=== PATIENT | male | born 1945 | race Caucasian/White ===

== ENCOUNTER 2017-10-12 21:00 | Outpatient (CLI) | payer MEDICARE, BC ==
[~2017-10-12 21:00] MED LIST: ASP81TEC PO; ASPI-999 PO; ATOR40TA PO; ATOR80TA76 PO; CLOP75TA PO; ENAL10TA PO; ENAL20TA PO; FENO135C4 PO; METO50TA7 PO; MULT-298 PO; NIAC1CAP PO; NIAC500T24 PO
== END 2017-10-13 06:00 | disposition home or self-care (01) ==
LOC: SLEEP 21:00
PROVIDERS: ATTEND Nurse Practitioner
DX: G47.10 Hypersomnia, unspecified (principal); R06.83 Snoring; I10 Essential (primary) hypertension
CPT/HCPCS: 95810

== ENCOUNTER → 2018-04-04 | Outpatient (CLI) | payer MEDICARE, BC ==
[~2018-04-04] VITALS: Ht 177.8 cm; Wt 82.1 kg
[~2018-04-04] MED LIST changes: +CATHETER FLUSH 10 ML SYR IV PRN; +REGADENOSON 0.4 MG/5 ML SYR (LEXISCAN) IV ONE
[2018-04-04 09:24] VITALS: BP 161/86
--- NOTE | 2018-04-04 19:26 | STRESS TEST ---
DATE OF SERVICE: 04/04/2018 RESTING AND POST REGADENOSON TECHNETIUM-99M TETROFOSMIN SPECT CT IMAGING Baseline images were carried out after injection of 10.64 mCi of technetium-99m tetrofosmin. This was followed by 0.4 mg regadenoson and 28.6 mCi of mail technician-99 tetrofosmin for stress imaging. The electrocardiogram showed sinus rhythm at baseline. There was nonspecific ST and T-wave abnormality in the inferolateral leads, which did not change with the regadenoson infusion. The patient tolerated the procedure well. Review of images at rest and following stress does not indicate any distinct perfusion defects consistent with significant myocardial ischemia or infarction. Gated images show normal global left ventricular systolic function, normal regional wall motion. Left ventricular ejection fraction is calculated to be 62%. Left ventricular end diastolic volume is 82 mL. TID is absent (1.14). CONCLUSIONS: 1. No evidence of significant myocardial ischemia or infarction on this study. 2. Normal regional wall motion. 3. Normal global left ventricular systolic function with a calculated ejection fraction of 62%. Job ID: [id number] DocumentID: [id number] Dictated Date: 04/04/2018 17:00:07 [employer] Date: 04/04/2018 19:25:25 Dictated By: BRADFORD DE LA CRUZ MD, MA, FACP, FACC,
== END ==
LOC: CARD 07:19
PROVIDERS: ATTEND Nurse Practitioner Family
DX: I25.10 Atherosclerotic heart disease of native coronary artery without angina pectoris (principal); I10 Essential (primary) hypertension; E78.5 Hyperlipidemia, unspecified
CPT/HCPCS: 78452; 93017

== ENCOUNTER 2019-02-27 05:30 | Outpatient (CLI) | payer MEDICARE, BC ==
[~2019-02-27] VITALS: Ht 177.8 cm; Wt 82.1 kg
[~2019-02-27 05:30] MED LIST changes: -CATHETER FLUSH 10 ML SYR IV PRN; -REGADENOSON 0.4 MG/5 ML SYR (LEXISCAN) IV ONE
[2019-02-28] MEDS ORDERED: MULT-610 PO (10:54)
[2019-02-28] MEDS ORDERED: METO-352 PO (10:55)
[2019-02-28] MEDS ORDERED: CLOP75TA28 PO (10:55)
== END 2019-02-28 11:04 | disposition home or self-care (01) ==
LOC: PREOP 05:30
PROVIDERS: ATTEND Specialist
DX: Z01.818 Encounter for other preprocedural examination (principal)

== ENCOUNTER 2019-03-02 05:56 | Day surgery (SDC) | payer MEDICARE, BC ==
[~2019-03-02] VITALS: Ht 177.8 cm; Wt 82.1 kg
[~2019-03-02 05:56] MED LIST changes: +CLOP75TA28 PO; +METO-352 PO; +MULT-610 PO
[2019-03-02 06:00] VITALS: BP 168/92
[2019-03-02] MEDS ORDERED: LIDOCAINE PF 1% 2 ML AMP IR PRN (06:15)
[2019-03-02] MEDS ORDERED: TIMOLOL MALEATE 0.5% 5 ML (TIMOPTIC) BTL OU PRN (06:15)
[2019-03-02] MEDS ORDERED: POVIDONE (BETADINE) OPHTH SOLN 5% 30 ML OP ONE (06:15)
[2019-03-02] MEDS ORDERED: MOXIFLOXACIN OPHTH SOLN 5 MG/ML 0.3 ML SYRINGE OP ONE (06:15)
[2019-03-02] MEDS: TETRACAINE 0.5% OPHTH SOLN 4 ML BTL (SINGLE DOSE ONLY) OU PRN ×4 (06:22→06:47)
[2019-03-02] MEDS: CYCLOPENTOLATE 1% (CYCLOGYL) 2 ML DROPS OP SCH ×3 (06:34→06:47)
[2019-03-02] MEDS: PHENYLEPHRINE 10% OPHTH (NEO-SYN) 5 ML BTL OU SCH ×3 (06:34→06:47)
[2019-03-02] MEDS ORDERED: MIDAZOLAM 2 MG/2 ML (VERSED) VIAL ONE (06:47)
--- NOTE | 2019-03-02 06:55 | Ophthalmologist Pre-Op Note ---
Pre-Operative Progress Note H&P Reviewed The H&P was reviewed, patient examined and no changes noted. Date H&P Reviewed: Mar 02, 2019 Time H&P Reviewed: 06:55 Pre-Op Dx Cataract, Right Eye SHANNON PRATHER MD Mar 02, 2019 06:55
--- NOTE | 2019-03-02 07:16 | Ophthalmology Operative Report ---
Cataract removal/placement IOL PREOPERATIVE DIAGNOSIS: Cataract Right Eye POSTOPERATIVE DIAGNOSIS: Cataract Right Eye PROCEDURE: Cataract removal and placement of posterior chamber implant, right eye SURGEON: Gerardo Prather ANESTHESIA: Topical with sedation COMPLICATIONS: None ESTIMATED BLOOD LOSS: Minimal DESCRIPTION OF PROCEDURE: After proper informed consent was obtained, the patient, a 73 male, was taken to the Operating Room and the right eye was anesthetized with tetracaine. The right eye was then prepped and draped in the usual manner. A wire lid speculum was placed. A paracentesis was made at the left hand position. Preservative free lidocaine was injected into the anterior chamber followed by viscoelastic. A clear corneal incision was made in the temporal position. A capsulorrhexis was preformed and the central nuclear and cortical material were removed. The posterior capsule was polished and Jc [id number] 21.5 IOL was placed into the capsular bag. The residual viscoelastic was aspirated and balanced saline solution was injected into the anterior chamber. Moxifloxacin was injected into the anterior chamber. The wound was checked and found to be water tight. The patient tolerated the procedure well without complications. GERARDO PRATHER MD Mar 02, 2019 07:16
[2019-03-02 07:23] VITALS: BP 163/87
[2019-03-02] MEDS ORDERED: acetaZOLAMIDE ER 500 MG CAP (DIAMOX SEQUELS) PO ONE (07:30)
--- NOTE | 2019-03-02 10:54 | Anesthesia-General Post-Op ---
MAC Patient Condition Mental Status/LOC: Same as Preop Cardiovascular: Satisfactory Nausea/Vomiting: Absent Respiratory: Satisfactory Pain: Controlled Complications: Absent Post Op Complications Complications None Follow Up Care/Instructions Patient Instructions None needed. Anesthesiology Discharge Order Discharge Order Patient is doing well, no complaints, stable vital signs, no apparent adverse anesthesia problems. No complications reported per nursing. SHRUTHI WILSON CRNA Mar 02, 2019 10:54
== END 2019-03-02 07:23 | disposition home or self-care (01) ==
LOC: SDC 05:56
PROVIDERS: ATTEND Specialist
DX: H25.11 Age-related nuclear cataract, right eye (principal); I25.10 Atherosclerotic heart disease of native coronary artery without angina pectoris; Z87.891 Personal history of nicotine dependence; Z82.49 Family history of ischemic heart disease and other diseases of the circulatory system; Z83.3 Family history of diabetes mellitus; Z95.1 Presence of aortocoronary bypass graft; Z79.82 Long term (current) use of aspirin; Z79.02 Long term (current) use of antithrombotics/antiplatelets; Z79.899 Other long term (current) drug therapy

== ENCOUNTER 2019-03-14 05:34 | Outpatient (CLI) | payer MEDICARE, BC ==
[~2019-03-14] VITALS: Ht 177.8 cm; Wt 82.1 kg
== END 2019-03-15 11:10 | disposition home or self-care (01) ==
LOC: PREOP 05:34
PROVIDERS: ATTEND Specialist
DX: Z01.818 Encounter for other preprocedural examination (principal)

== ENCOUNTER 2019-03-16 06:00 | Day surgery (SDC) | payer MEDICARE, BC ==
[~2019-03-16] VITALS: Ht 177.8 cm; Wt 82.1 kg
[2019-03-16 06:10] VITALS: BP 171/92
[2019-03-16] MEDS: TETRACAINE 0.5% OPHTH SOLN 4 ML BTL (SINGLE DOSE ONLY) OU PRN ×4 (06:14→06:36)
[2019-03-16] MEDS ORDERED: MOXIFLOXACIN OPHTH SOLN 5 MG/ML 0.3 ML SYRINGE OP ONE (06:15)
[2019-03-16] MEDS ORDERED: POVIDONE (BETADINE) OPHTH SOLN 5% 30 ML OP ONE (06:15)
[2019-03-16] MEDS ORDERED: TIMOLOL MALEATE 0.5% 5 ML (TIMOPTIC) BTL OU PRN (06:15)
[2019-03-16] MEDS ORDERED: LIDOCAINE PF 1% 2 ML AMP IR PRN (06:15)
[2019-03-16] MEDS: CYCLOPENTOLATE 1% (CYCLOGYL) 2 ML DROPS OP SCH ×3 (06:25→06:36)
[2019-03-16] MEDS: PHENYLEPHRINE 10% OPHTH (NEO-SYN) 5 ML BTL OU SCH ×3 (06:25→06:36)
[2019-03-16] MEDS ORDERED: MIDAZOLAM 2 MG/2 ML (VERSED) VIAL ONE (07:03)
[2019-03-16 07:30] VITALS: BP 165/90
[2019-03-16] MEDS ORDERED: acetaZOLAMIDE ER 500 MG CAP (DIAMOX SEQUELS) PO ONE (07:30)
--- NOTE | 2019-03-16 14:29 | Anesthesia-General Post-Op ---
MAC Patient Condition Mental Status/LOC: Same as Preop Cardiovascular: Satisfactory Nausea/Vomiting: Absent Respiratory: Satisfactory Pain: Controlled Complications: Absent Post Op Complications Complications None Follow Up Care/Instructions Patient Instructions None needed. Anesthesiology Discharge Order Discharge Order Patient is doing well, no complaints, stable vital signs, no apparent adverse anesthesia problems. No complications reported per nursing. HERNESTO VELASQUEZ CRNA Mar 16, 2019 14:29
== END 2019-03-16 07:30 | disposition home or self-care (01) ==
LOC: SDC 06:00
PROVIDERS: ATTEND Specialist
DX: H25.12 Age-related nuclear cataract, left eye (principal); I25.10 Atherosclerotic heart disease of native coronary artery without angina pectoris; Z95.1 Presence of aortocoronary bypass graft; Z98.61 Coronary angioplasty status; Z79.82 Long term (current) use of aspirin; Z79.899 Other long term (current) drug therapy; Z87.891 Personal history of nicotine dependence

== ENCOUNTER 2021-05-20 02:44 | Emergency (ER) | payer MEDICARE, BC ==
[~2021-05-20] VITALS: Ht 177.8 cm; Wt 81.6 kg
[~2021-05-20 02:44] MED LIST changes: -ENAL20TA PO; +ENAL20TA16 PO
[2021-05-20] MEDS ORDERED: HYDROcodone/APAP 5 MG/325 MG (LORTAB) TAB PO ONE (03:00)
--- NOTE | 2021-05-20 03:02 | ED GU-Male ---
General Chief Complaint: Post OP Complications/Pain Stated Complaint: PROSTATE BIOPSY YESTERDAY-PAIN Source: patient Exam Limitations: no limitations History of Present Illness Date Seen by Provider: May 20, 2021 Time Seen by Provider: 02:53 Initial Comments The patient presents to the ER by private conveyance with his and chief complaint that he has had difficulty with urinating since yesterday afternoon and feels the urge to urinate but cannot get anything to pass. He had a needle biopsy of the prostate yesterday by Dr. Schmitz secondary to a PSA of 20. He is not having any difficulty with diarrhea or discharge from the urethra. He has not had nausea. He rates his pain as severe. He did not take anything for the pain. He has been on antibiotics for the past 2 days in anticipation of the procedure and his last day was today. Allergies and Home Medications Allergies Coded Allergies: No Known Drug Allergies (Unverified , 09/29/11) Patient Home Medication List Home Medication List Reviewed: Yes Aspirin (Aspirin) 81 Mg Tab.chew, 81 MG PO DAILY Prescribed by: BRADFORD DE LA CRUZ on 04/21/16 0857 Atorvastatin Calcium (Atorvastatin Calcium) 80 Mg Tablet, 80 MG PO DAILY, (Reported) Entered as Reported by: AGA DAMON on 04/20/16 1146 Clopidogrel Bisulfate (Clopidogrel) 75 Mg Tablet, 75 MG PO DAILY, (Reported) Entered as Reported by: FLOR OBRIEN on 02/28/19 1055 Enalapril Maleate (Enalapril Maleate) 20 Mg Tablet, 20 MG PO DAILY, (Reported) Entered as Reported by: AGA DAMON on 04/20/16 1146 Fenofibric Acid (Choline) (Fenofibric Acid) 135 Mg Capsule.dr, 135 MG PO DAILY, (Reported) Entered as Reported by: AGA DAMON on 04/20/16 1146 Metoprolol Succinate (Toprol Xl) 50 Mg Tab.er.24h, 50 MG PO BID, (Reported) Entered as Reported by: FLOR OBRIEN on 02/28/19 1055 Review of Systems Review of Systems Constitutional: No chills, No diaphoresis EENTM: No ear discharge, No ear pain Respiratory: No cough, No short of breath Cardiovascular: No chest pain, No edema Gastrointestinal: abdominal pain (Suprapubic); No constipation, No nausea Genitourinary: denies discharge, denies dysuria Musculoskeletal: No back pain, No joint pain All Other Systemes Reviewed Negative Unless Noted: Yes Past Kkzfvft-Ccnbkz-Szfhji Hx Patient Social History Tobacco Use?: No Smoking Status: Former Smoker (Quit 20 years ago) Use of E-Cig and/or Vaping dev: No Substance use?: No Alcohol Use?: No Physical Exam Vital Signs Vital Signs - First Documented 05/20/21 02:53 Temp 36.1 Pulse 112 Resp 16 B/P (MAP) 223/132 (162) Pulse Ox 97 O2 Delivery Room Air Capillary Refill : Height, Weight, BMI Height: 5'10.00" Weight: 181lbs. 0.0oz. 82.421493sf; 26.0 BMI Method: General Appearance: WD/WN, moderate distress HEENT: PERRL/EOMI, pharynx normal Neck: full range of motion, supple, normal inspection Cardiovascular: normal peripheral pulses, regular rate, rhythm Respiratory: no respiratory distress, no accessory muscle use Gastrointestinal: non tender, soft Extremities: non-tender, normal inspection, normal capillary refill Neurologic/Psychiatric: alert, normal mood/affect, oriented x 3 Skin: normal color, warm/dry Progress/Results/Core Measures Suspected Sepsis SIRS Temperature: Pulse: Respiratory Rate: Blood Pressure / Mean: Results/Orders Lab Results Laboratory Tests Test 05/20/21 03:00 Range/Units Urine Color ORANGE Urine Clarity CLEAR Urine pH 6.0 5-9 Urine Specific [place] 1.020 1.016-1.022 Urine Protein 1+ H NEGATIVE Urine Glucose (UA) NEGATIVE NEGATIVE Urine Ketones NEGATIVE NEGATIVE Urine Nitrite NEGATIVE NEGATIVE Urine Bilirubin NEGATIVE NEGATIVE Urine Urobilinogen 0.2 < = 1.0 MG/DL Urine Leukocyte Esterase NEGATIVE NEGATIVE Urine RBC (Auto) 3+ H NEGATIVE Urine RBC 5-10 H /HPF Urine WBC NONE /HPF Urine Squamous Epithelial Cells 0-2 /HPF Urine Crystals PRESENT H /LPF Urine Amorphous Sediment LARGE GIBRAN URATES H /LPF Urine Bacteria NEGATIVE /HPF Urine Casts NONE /LPF Urine Mucus LARGE H /LPF Urine Culture Indicated NO My Orders Orders - YASH PURVIS Hydrocodone/Apap 5/325 Tablet (Lortab 5 (05/20/21 03:00) Ua Culture If Indicated (05/20/21 02:56) Bladder Scan (05/20/21 02:56) Lidocaine 2% (Urojet) (Xylocaine Urojet) (05/20/21 03:15) Mora Cath (05/20/21 03:27) Medications Given in ED Current Medications Medications Dose Ordered Sig/Ravindra Route Start Time Stop Time Status Last Admin Dose Admin Acetaminophen/ Hydrocodone Bitart 2 ea ONCE ONCE PO 05/20/21 03:00 05/20/21 03:01 DC 05/20/21 03:12 2 EA Lidocaine HCl 10 ml ONCE ONCE TOP 05/20/21 03:15 05/20/21 03:16 DC 05/20/21 03:13 10 ML Vital Signs/I&O 05/20/21 05/20/21 02:53 03:30 Temp 36.1 Pulse 112 Resp 16 B/P (MAP) 223/132 (162) 162/91 Pulse Ox 97 O2 Delivery Room Air Capillary Refill : Progress Note #1: Time: 03:01 Progress Note Bladder scan, 2 tablets of Jena 5 x 325. Suspect he has urinary retention due to outlet obstruction secondary to prostate inflammation secondary to needle biopsy. He is tachycardic and has a significant elevated blood pressure secondary to pain which I think will be improved if we can relieve the pressure in his bladder. No other symptoms of infection at this time. We will get a u rinalysis. Progress Note #2: Time: 03:52 Progress Note bladder scan greater than 1000 ml. 16 Fr coude tipped passed with urojet easily and clamped at 1200 before we left the room. Immediate relief per pt. Departure Impression Primary Impression: Urinary outflow obstruction Disposition: HOME, SELF-CARE Condition: Stable Departure-Patient Inst. Decision time for Depature: 03:54 Referrals: HINA POWELL MD (PCP/Family) Primary Care Physician Patient Instructions: Urinary Obstruction (DC) Add. Discharge Instructions: Call Dr. Schmitz in the morning and request follow-up appointment. Keep the Mora catheter in place until that time. Clean with soap and water. Return to the ER or to your urologist during the day if you are having difficulty getting urine to come out of the Mora catheter or you are having increased pressure and pain. Keflex 1 capsule twice a day for the next 5 days to prevent infection Scripts Cephalexin (Cephalexin) 500 Mg Tablet 500 MG PO BID for 5 Days, #10 TAB 0 Refills Prov: YASH PURVIS 05/20/21 YASH PURVIS May 20, 2021 03:02
[2021-05-20] MEDS ORDERED: LIDOCAINE UROJET 2% GEL 10 ML PKG TOP ONE (03:15)
[2021-05-20 03:28] LABS: BILIRUBIN,URINE NEGATIVE (NEGATIVE); CLARITY,URINE CLEAR; COLOR,URINE ORANGE; GLUCOSE, URINE (UA) NEGATIVE (NEGATIVE); KETONES,URINE NEGATIVE (NEGATIVE); LEUKOCYTE ESTERASE ,URINE NEGATIVE (NEGATIVE); NITRITE,URINE NEGATIVE (NEGATIVE); PROTEIN,URINE 1+ (NEGATIVE)
[2021-05-20 03:38] LABS: BACTERIA,URINE NEGATIVE /HPF; SQUAMOUS EPITHELIAL CELL,UR 0-2 /HPF
[2021-05-20 03:39] LABS: AMORPHOUS SEDIMENT,UR LARGE AMOR URATES /LPF
[2021-05-20] MEDS ORDERED: CEPH500T PO (03:57)
[2021-05-20 04:31] VITALS: BP 148/77
== END 2021-05-20 04:31 | disposition home or self-care (01) ==
LOC: EDUNIT# 02:44 → ER 02:48
DX: N13.9 Obstructive and reflux uropathy, unspecified (principal); Z87.891 Personal history of nicotine dependence; Z79.82 Long term (current) use of aspirin; Z79.01 Long term (current) use of anticoagulants
CPT/HCPCS: 51702; 81000

== ENCOUNTER 2021-06-22 12:35 | Outpatient (RCR) | payer MEDICARE, BC ==
[~2021-06-22 12:35] MED LIST changes: +CEPH500T PO
== END 2021-07-31 | disposition home or self-care (01) ==
LOC: ONC 12:35
PROVIDERS: ATTEND Radiology Radiation Oncology
DX: C61 Malignant neoplasm of prostate (principal); I25.10 Atherosclerotic heart disease of native coronary artery without angina pectoris; E11.9 Type 2 diabetes mellitus without complications; I10 Essential (primary) hypertension; E78.5 Hyperlipidemia, unspecified
CPT/HCPCS: 99205

== ENCOUNTER → 2021-09-28 | Outpatient (RCR) | payer MEDICARE, BC | END | disposition home or self-care (01) | LOC: ONC 09-01 09:01 | PROVIDERS: ATTEND Radiology Radiation Oncology | DX: Z51.0 Encounter for antineoplastic radiation therapy (principal); C61 Malignant neoplasm of prostate; I10 Essential (primary) hypertension; E78.5 Hyperlipidemia, unspecified; I25.10 Atherosclerotic heart disease of native coronary artery without angina pectoris | CPT/HCPCS: 77300; 77301; 77334; 77336; 77338; 77385 ==

== ENCOUNTER 2021-10-20 14:44 | Outpatient (RCR) | payer MEDICARE, BC | END 2021-10-29 | disposition home or self-care (01) | LOC: ONC 14:44 | PROVIDERS: ATTEND Radiology Radiation Oncology | DX: Z51.0 Encounter for antineoplastic radiation therapy (principal); C61 Malignant neoplasm of prostate; I10 Essential (primary) hypertension; E78.5 Hyperlipidemia, unspecified; I25.10 Atherosclerotic heart disease of native coronary artery without angina pectoris | CPT/HCPCS: 77336; 77385; G0463 ==

== ENCOUNTER 2021-11-26 10:56 | Outpatient (RCR) | payer MEDICARE, BC | END 2021-11-28 | disposition home or self-care (01) | LOC: ONC 10:56 | PROVIDERS: ATTEND Radiology Radiation Oncology | DX: C61 Malignant neoplasm of prostate (principal); I10 Essential (primary) hypertension; E78.5 Hyperlipidemia, unspecified; I25.10 Atherosclerotic heart disease of native coronary artery without angina pectoris | CPT/HCPCS: 99213 ==

== ENCOUNTER → 2022-04-02 | Outpatient (CLI) | payer MEDICARE, BC | LOC: CARD 07:56 | PROVIDERS: ATTEND Nurse Practitioner Family | DX: I34.0 Nonrheumatic mitral (valve) insufficiency (principal); I51.7 Cardiomegaly; I25.10 Atherosclerotic heart disease of native coronary artery without angina pectoris | CPT/HCPCS: 93306 ==

== ENCOUNTER → 2022-04-06 | Outpatient (CLI) | payer MEDICARE, BC ==
[~2022-04-06] VITALS: Ht 177 cm; Wt 77.0 kg
[~2022-04-06] MED LIST changes: +CATHETER FLUSH 10 ML SYR IVP PRN; +REGADENOSON 0.4 MG/5 ML SYR (LEXISCAN) IV ONE
[2022-04-06 09:04] VITALS: BP 151/74
--- NOTE | 2022-04-06 16:52 | STRESS TEST ---
DATE OF SERVICE: 04/06/2022 RESTING AND POST REGADENOSON TECHNETIUM-99M TETROFOSMIN SPECT CT IMAGING ORDERING PHYSICIAN: Luna Keating APRN. PRIMARY PHYSICIAN: Dr. Ashby. OTHER PHYSICIAN: Dr. De La Cruz. CLINICAL DIAGNOSIS: Coronary artery disease. Baseline images were carried out after injection of 10.79 mCi of technetium-99m Tetrofosmin. This was followed by 0.4 mg Regadenoson and 30.4 mCi of technetium-99m Tetrofosmin for stress imaging. The electrocardiogram showed sinus rhythm with nonspecific ST and T-wave abnormality at baseline. This did not seem to change significantly with the Regadenoson infusion. He noted mild chest pressure and mild shortness of breath following Regadenoson infusion, which resolved in a few minutes. Review of images at rest and following stress does not indicate any distinct perfusion defects consistent with significant myocardial ischemia or infarction. Gated images show a normal global left ventricular systolic function with normal regional wall motion. Left ventricular ejection fraction is calculated to be 56%. CONCLUSIONS: 1. No evidence of any significant myocardial ischemia or infarction on this study. 2. Normal regional wall motion. 3. Normal global left ventricular systolic function with a calculated ejection fraction of 56%. Job ID: [id number] DocumentID: [id number] Dictated Date: 04/06/2022 16:25:31 [employer] Date: 04/06/2022 16:51:36 Dictated By: BRADFORD DE LA CRUZ MD, MA, FACP, FACC,
== END ==
LOC: CARD 07:30
PROVIDERS: ATTEND Nurse Practitioner Family
DX: I25.10 Atherosclerotic heart disease of native coronary artery without angina pectoris (principal)
CPT/HCPCS: 78452; 93017; A9502

== ENCOUNTER → 2023-05-25 | Outpatient (CLI) | payer MEDICARE, OTHER ==
[~2023-05-25] MED LIST changes: -CATHETER FLUSH 10 ML SYR IVP PRN; +ENAL-70 PO; -ENAL20TA16 PO; -REGADENOSON 0.4 MG/5 ML SYR (LEXISCAN) IV ONE
--- NOTE | 2023-05-25 17:07 | Diagnostic Imaging Report ---
EXAMINATION: Abdominal series and chest radiograph HISTORY: BLOATING COMPARISON: None available. FINDINGS: No dilated bowel. No free air. There is a moderate amount of stool. There has been a median sternotomy. There is scarring or atelectasis in the left mid zone. No edema or pneumonia. No pleural effusion or pneumothorax. Heart size is normal. IMPRESSION: 1. Mild scarring or atelectasis in the left mid zone. 2. Normal bowel gas pattern. Dictated by: Dictated on workstation # [id number]
== END ==
LOC: RAD 16:05
PROVIDERS: ATTEND Nurse Practitioner Family
DX: R14.0 Abdominal distension (gaseous) (principal)
CPT/HCPCS: 74022

== ENCOUNTER → 2023-07-06 | Outpatient (CLI) | payer MEDICARE, OTHER | END | disposition home or self-care (01) | LOC: PREOP 05:54 | PROVIDERS: ATTEND Surgery | DX: Z01.818 Encounter for other preprocedural examination (principal) ==